=== PATIENT | female | born 1965 | race Caucasian/White ===

== ENCOUNTER 2017-10-22 13:17 | Emergency (ER) | payer OTHER, MEDICAID ==
[2017-10-22 14:09] LABS: ADD MAN DIFF? NO
[2017-10-22 14:11] LABS: WHITE BLOOD COUNT 9.7 10^3/ul (4.8-10.8)
[2017-10-22 14:11] LABS: BASOPHIL # 0.1 10^3/ul (0.0-0.1); BASOPHILS % 1.1 % (0.0-2.0); EOSINOPHILS # 0.2 10^3/ul (0.0-0.5); EOSINOPHILS % 2.1 % (0.0-7.0); HEMOGLOBIN 12.8 g/dl (12.0-16.0); LYMPHOCYTES # 1.8 10^3/ul (0.8-2.9); MEAN CORPUSCULAR HEMOGLOBIN 29.7 pg (29.0-33.0); MEAN CORPUSCULAR HGB CONC 33.7 g/dl (32.0-37.0); MEAN CORPUSCULAR VOLUME 88.2 fl (82.0-101.0); MEAN PLATELET VOLUME 9.6 fl (7.4-10.4); MONOCYTE # 0.7 10^3/ul (0.3-0.9); MONOCYTES % 6.7 % (0.0-11.0); NEUTROPHIL # 6.9 10^3/ul (1.6-7.5); NEUTROPHILS % 70.8 % (39.0-77.0); PLATELET COUNT 278 10^3/UL (140-415); RED BLOOD COUNT 4.31 10^6/ul (4.20-5.40); RED CELL DISTRIBUTION WIDTH 13.8 % (11.5-14.5)
[2017-10-22] MEDS: ONDANSETRON 4 MG INJ IV (14:22)
[2017-10-22] MEDS: morphine 4 MG/ML VIAL IV (14:22)
[2017-10-22 14:31] LABS: ALANINE AMINOTRANSFERASE 101 IU/L (13-69); ALBUMIN 3.5 g/dl (3.3-4.9); ALBUMIN/GLOBULIN RATIO 1.06; ALKALINE PHOSPHATASE 153 IU/L (42-121); ANION GAP 9 (8-16); ASPARTATE AMINO TRANSFERASE 124 IU/L (15-46); BILIRUBIN,INDIRECT 0.6 mg/dl (0-1.1); BILIRUBIN,TOTAL 0.6 mg/dl (0.2-1.3); BLOOD UREA NITROGEN 7 mg/dl (7-20); CALCIUM 8.7 mg/dl (8.4-10.2); CARBON DIOXIDE 29 mmol/L (21-31); CHLORIDE 109 mmol/L (97-110); CREATININE 0.55 mg/dl (0.44-1.00); GLUCOSE 151 mg/dl (70-220); LIPASE 82 U/L (23-300); POTASSIUM 3.4 mmol/L (3.5-5.1); SODIUM 144 mmol/L (135-144); TOTAL PROTEIN 6.8 g/dl (6.1-8.1)
[2017-10-22 14:42] LABS: TROPONIN-I < 0.012 ng/ml (0.000-0.120)
== END 2017-10-22 16:11 | disposition home or self-care (01) ==
LOC: E/R 13:17
DX: K80.50 Calculus of bile duct without cholangitis or cholecystitis without obstruction (principal); I10 Essential (primary) hypertension; Z79.82 Long term (current) use of aspirin
CPT/HCPCS: 76705; 80053; 83690; 84484; 85025; 93005; 96374; 96375; 99285-25

== ENCOUNTER 2017-10-30 18:43 | Emergency (ER) | payer OTHER ==
[2017-10-30] MEDS: ONDANSETRON 4 MG INJ IV (21:22)
[2017-10-30] MEDS: HYDROmorphONE 1 MG/ML SYG IV (21:22)
[2017-10-30] MEDS: SOD CHLORIDE 0.9% 1,000 ML IV (21:27)
[2017-10-30 21:39] LABS: ADD MAN DIFF? NO
[2017-10-30 21:44] LABS: WHITE BLOOD COUNT 12.2 10^3/ul (4.8-10.8)
[2017-10-30 21:44] LABS: BASOPHIL # 0.1 10^3/ul (0.0-0.1); BASOPHILS % 0.7 % (0.0-2.0); EOSINOPHILS # 0.2 10^3/ul (0.0-0.5); EOSINOPHILS % 1.8 % (0.0-7.0); HEMATOCRIT 41.6 % (37.0-47.0); HEMOGLOBIN 13.7 g/dl (12.0-16.0); LYMPHOCYTES # 3.1 10^3/ul (0.8-2.9); MEAN CORPUSCULAR HEMOGLOBIN 29.5 pg (29.0-33.0); MEAN CORPUSCULAR HGB CONC 32.9 g/dl (32.0-37.0); MEAN CORPUSCULAR VOLUME 89.5 fl (82.0-101.0); MEAN PLATELET VOLUME 10.1 fl (7.4-10.4); MONOCYTE # 0.9 10^3/ul (0.3-0.9); NEUTROPHILS % 65.3 % (39.0-77.0); PLATELET COUNT 267 10^3/UL (140-415); RED BLOOD COUNT 4.65 10^6/ul (4.20-5.40); RED CELL DISTRIBUTION WIDTH 14.6 % (11.5-14.5)
[2017-10-30 22:05] LABS: ALANINE AMINOTRANSFERASE 105 IU/L (13-69); ALBUMIN 4.2 g/dl (3.3-4.9); ALBUMIN/GLOBULIN RATIO 1.27; ALKALINE PHOSPHATASE 189 IU/L (42-121); ANION GAP 16 (8-16); ASPARTATE AMINO TRANSFERASE 76 IU/L (15-46); BILIRUBIN,INDIRECT 0.5 mg/dl (0-1.1); BILIRUBIN,TOTAL 0.5 mg/dl (0.2-1.3); BLOOD UREA NITROGEN 11 mg/dl (7-20); CALCIUM 9.3 mg/dl (8.4-10.2); CARBON DIOXIDE 27 mmol/L (21-31); CHLORIDE 106 mmol/L (97-110); CREATININE 0.69 mg/dl (0.44-1.00); GLUCOSE 120 mg/dl (70-220); LIPASE 75 U/L (23-300); POTASSIUM 3.7 mmol/L (3.5-5.1); SODIUM 145 mmol/L (135-144); TOTAL PROTEIN 7.5 g/dl (6.1-8.1)
== END 2017-10-30 23:39 | disposition home or self-care (01) ==
LOC: E/R 18:43
DX: K80.50 Calculus of bile duct without cholangitis or cholecystitis without obstruction (principal); R19.7 Diarrhea, unspecified; I10 Essential (primary) hypertension; R40.2142 Coma scale, eyes open, spontaneous, at arrival to emergency department; R40.2252 Coma scale, best verbal response, oriented, at arrival to emergency department; R40.2362 Coma scale, best motor response, obeys commands, at arrival to emergency department; Z79.82 Long term (current) use of aspirin
CPT/HCPCS: 36415; 76705; 80053; 83690; 85025; 96374; 96375; 99285-25

== ENCOUNTER 2018-06-09 18:12 | Emergency (ER) | payer OTHER ==
[2018-06-09] MEDS: ONDANSETRON (ODT) 4 MG TAB ODT (21:13)
[2018-06-09] MEDS: KETOROLAC 60 MG INJ IM (21:15)
== END 2018-06-09 23:25 | disposition home or self-care (01) ==
LOC: FTE 18:12
DX: J06.9 Acute upper respiratory infection, unspecified (principal); I10 Essential (primary) hypertension; Z79.82 Long term (current) use of aspirin
CPT/HCPCS: 71045; 81025; 87400; 96372; 99284-25

== ENCOUNTER 2018-07-21 11:55 | Emergency (ER) | payer OTHER | END 2018-07-21 13:32 | disposition home or self-care (01) | LOC: FTE 11:55 | DX: R05 Cough (principal); I10 Essential (primary) hypertension; Z79.82 Long term (current) use of aspirin | CPT/HCPCS: 99283; Z7502 ==

== ENCOUNTER 2018-10-09 09:54 | Emergency (ER) | payer OTHER ==
[2018-10-09] MEDS: IBUPROFEN 600 MG TAB PO (11:07)
== END 2018-10-09 12:34 | disposition home or self-care (01) ==
LOC: FTE 09:54
DX: M54.5 Low back pain (principal); I10 Essential (primary) hypertension; M25.561 Pain in right knee; Z79.82 Long term (current) use of aspirin
CPT/HCPCS: 72072; 72100; 73562; 99284-25

== ENCOUNTER → 2019-01-25 | Emergency (ER) | payer OTHER ==
[2019-01-25] MEDS: DEXAMETHASONE 10 MG/ML 1 ML INJ IM (09:31)
[2019-01-25] MEDS: KETOROLAC 60 MG INJ IM (09:40)
== END | disposition home or self-care (01) ==
LOC: FTE 08:54
DX: M54.5 Low back pain (principal); I10 Essential (primary) hypertension; F17.210 Nicotine dependence, cigarettes, uncomplicated; Z79.82 Long term (current) use of aspirin
CPT/HCPCS: 72131; 81025; 96372; 99285-25